=== PATIENT | male | born 1965 | race Caucasian/White ===

== ENCOUNTER 2017-08-29 13:09 | Emergency (ER) | payer MEDICARE, MEDICAID, SELFPAY | END 2017-08-29 14:19 | disposition home or self-care (01) | PROVIDERS: Family Provider Family Medicine; PCP Family Medicine | DX: F41.9 Anxiety disorder, unspecified (principal) | CPT/HCPCS: 82962; 99283 ==

== ENCOUNTER → 2017-10-14 09:57 | Outpatient (CLI) | payer MEDICARE, MEDICAID, SELFPAY ==
[2017-10-14 10:31] LABS: Add Manual Diff / Slide Review NO; Basophils Percent Auto 0.6 % (0-2); Eosinophils Percent Auto 2.7 % (2-4); Hematocrit 45.7 % (41-53); Hemoglobin 15.7 g/dL (13.5-17.5); Lymphocytes Percent Auto 24.2 % (25-40); Mean Corpuscular HGB Conc 34.4 % (30-36); Mean Corpuscular Hemoglobin 28.5 PG (26-34); Mean Corpuscular Volume 82.7 fL (80-100); Monocytes Percent Auto 6.3 % (3-14); Neutrophils Absolute Auto 10300 /uL (3000-5900); Neutrophils Percent Auto 66.2 % (50-75); Platelet Count 292 X10^3/uL (150-400); Red Blood Cell Count 5.53 X10^6/uL (4.5-5.9); Red Cell Distribution Width 13.6 % (11.6-14.8); White Blood Cell Count 15.5 X10^3/uL (4.5-11.0)
[2017-10-14 10:38] LABS: Hemoglobin A1C% w Est Avg Glu 6.5 % (4.0-6.0)
[2017-10-14 10:48] LABS: Alanine Aminotransferase 39 IU/L (21-72); Albumin 4.3 g/dL (3.5-5.0); Albumin Globulin Ratio 1.3 (1.0-2.8); Alkaline Phosphatase 91 U/L (38-126); Aspartate Aminotransferase 21 IU/L (17-59); BUN Creatinine Ratio 18.6 (6-22); Bilirubin Total 0.9 mg/dL (0.2-1.3); Blood Urea Nitrogen 13 mg/dL (9-20); Calcium 9.2 mg/dL (8.4-10.2); Carbon Dioxide 27 mmol/L (22-32); Chloride 99 mmol/L (98-107); Cholesterol 103 mg/dL (140-199); Estimated Glomerular Filt Rate > 60.0 mL/min (>60); Globulin 3.3 g/dL (1.7-4.1); Glucose 132 mg/dL (70-100); HDL Cholesterol 28 mg/dL (40-60); HEMOLYSIS < 15 (0-50); LDL Cholesterol Calculated 56 mg/dL (<100); Potassium 4.3 mmol/L (3.4-5.1); Sodium 140 mmol/L (137-145); Total Protein 7.6 g/dL (6.3-8.2); Triglycerides 93 mg/dL (35-150)
== END ==
PROVIDERS: PCP Family Medicine; Visit Provider Family Medicine
DX: D72.829 Elevated white blood cell count, unspecified (principal); E11.9 Type 2 diabetes mellitus without complications
CPT/HCPCS: 36415; 80053; 80061; 83036; 85025

== ENCOUNTER → 2017-10-25 09:06 | Outpatient (CLI) | payer MEDICARE, MEDICAID, SELFPAY ==
--- NOTE | 2017-10-25 09:08 | DI.RAD.S_ITS ---
PROCEDURE: XR CERVICAL SPINE 2V OR 3V INDICATIONS: 52 year-old male with chronic neck pain. TECHNIQUE: 3 view(s) of the cervical spine were acquired. COMPARISON: None. FINDINGS: Bones: No fractures or dislocations to the C7 level. The lateral masses of C1 appear intact on the odontoid view. There is moderate C5-C6 and C6-C7 disc degeneration. No suspicious bony lesions. Soft tissues: No prevertebral soft tissue swelling. IMPRESSION: Moderate C5-C6 and C6-C7 disc degeneration, with normal bony alignment of the cervical spine. Dictated by: Tommy Hampton M.D. on 10/25/2017 at 10:12 Approved by: Tommy Hampton M.D. on 10/25/2017 at 10:13
== END ==
PROVIDERS: PCP Family Medicine; Visit Provider Family Medicine
DX: M50.322 Other cervical disc degeneration at C5-C6 level (principal); M54.2 Cervicalgia; G89.29 Other chronic pain
CPT/HCPCS: 72040

== ENCOUNTER 2018-01-02 14:50 | Emergency (ER) | payer MEDICARE, MEDICAID, SELFPAY ==
--- NOTE | 2018-01-02 14:52 | ED.ABDPAIN ---
HPI - Abdominal Pain <PRAMOD Morley - Last Filed: 01/02/18 22:18> General Chief Complaint: Back Pain/Injury Stated Complaint: LEFT SIDE ABDOMINAL PAIN Time Seen by Provider: 01/02/18 14:51 Source: patient Mode of arrival: ambulatory Limitations: no limitations History of Present Illness HPI narrative: 52-year-old male here for complaint of pain into his left lateral abdomen for the past couple of hours. He states that there was no trauma to the area. He reports that he was driving when the pain started. He denies any fevers or chills. No nausea or vomiting. Last bowel movement was yesterday and was unremarkable. He denies any urinary symptoms. No flank pain. He denies any other concerns or complaints. He denies any stressors or relievers of the pain. MD complaint: abdominal pain Related Data Home Medications Medication Instructions Recorded Confirmed hydroxyzine HCl 25 mg PO QID PRN 01/02/18 01/02/18 Previous Rx's Medication Instructions Recorded omeprazole 40 mg OR HS #30 cap 06/18/17 fluticasone 110 mcg/actuation HFA 1 puff INHALATION BID #12 gram 09/24/17 aerosol inhaler sertraline 50 mg tablet See Label Instructions PO DAILY 09/24/17 #30 tab albuterol sulfate HFA 90 1 puff INHALATION Q4-6H PRN #1 09/25/17 mcg/actuation aerosol inhaler inhalation atorvastatin 40 mg tablet 40 mg PO QHS #30 tab 11/06/17 lisinopril 20 mg tablet 20 mg PO QDAY #90 tab 12/24/17 cephalexin 500 mg PO BID #14 cap 01/02/18 Allergies Allergy/AdvReac Type Severity Reaction Status Date / Time No Known Drug Allergies Allergy Verified 01/02/18 15:07 Review of Systems <PRAMOD Morley - Last Filed: 01/02/18 22:18> Constitutional Denies chills, Denies fever(s), Denies lethargy and Denies weakness Eyes Denies change in vision, Denies eye discharge, Denies irritation and Denies loss of vision ENT Ears, Nose, Mouth, and Throat: Denies change in voice, Denies neck pain and Denies sore throat Cardiovascular Denies chest pain, Denies irregular heart rhythm, Denies lightheadedness, Denies palpitations, Denies dyspnea, Denies dyspnea on exertion and Denies orthopnea Respiratory Denies cough, Denies dyspnea, Denies dyspnea on exertion and Denies wheezing Gastrointestinal Gastrointestinal: Reports abdominal pain Genitourinary Denies hematuria, Denies flank pain, Denies urinary incontinence and Denies urinary urgency Musculoskeletal Denies neck pain Integumentary/Breasts Denies pruritus, Denies erythema, Denies rash and Denies wounds Neurologic Denies confusion, Denies loss of vision and Denies weakness Psychiatric Denies anxiety, Denies confusion, Denies depression, Denies homicidal ideation and Denies suicidal ideation Endocrine Denies palpitations Hematologic/Lymphatic Denies easy bruising Allergic/Immunologic Denies wheezing Exam <PRAMOD Morley - Last Filed: 01/02/18 22:18> Initial Vital Signs Initial Vital Signs: Vital Signs Temperature 98 F 01/02/18 15:01 Pulse Rate 93 H 01/02/18 15:01 Respiratory Rate 18 01/02/18 15:01 Blood Pressure 132/79 H 01/02/18 15:01 Pulse Oximetry 100 01/02/18 15:01 Const General: cooperative and well developed Nutritional Appearance: well nourished Orientation: alert, awake, oriented x3 and not confused [facility] Mouth: oral mucosae normal and moist mucous membranes Eyes Conjunctivae: conjunctivae normal Sclera: sclerae normal Pupils: PERRL EOM: EOM intact bilaterally Chest Chest: normal inspection of the chest Resp Effort & Inspection: normal respiratory effort, able to speak in complete sentences, no respiratory distress and no use of accessory muscles Auscultation: clear to auscultation bilaterally, no rales, no rhonchi and no wheezes Cardio Rate: regular rate Rhythm: regular rhythm Heart Sounds: no click, no gallops, no murmurs and no rubs Pulses: normal peripheral pulses GI Inspection: non-distended Palpation: soft, no hepatosplenomegaly, No guarding, No pulsatile mass and tender (Tender to the left lateral abdomen) Auscultation: normal bowel sounds General: No CVA tenderness Skin General: no rashes or lesions noted, No jaundice and No petechiae Neuro General: alert, oriented x3, gait normal and no focal motor deficits Speech: speech normal <Juan Pablo Smith DO - Last Filed: 01/03/18 07:35> Initial Vital Signs Initial Vital Signs: Vital Signs Temperature 98 F 01/02/18 15:01 Pulse Rate 93 H 01/02/18 15:01 Respiratory Rate 18 01/02/18 15:01 Blood Pressure 132/79 H 01/02/18 15:01 Pulse Oximetry 100 01/02/18 15:01 Course <PRAMOD Morley - Last Filed: 01/02/18 22:18> Orders Ordered: Discontinued Medications Hydromorphone HCl (Dilaudid) 0.5 mg IV NOW ONE Stop: 01/02/18 15:11 Last Admin: 01/02/18 15:24 Dose: 0.5 mg Sodium Chloride (Normal Saline 0.9%) 1,000 mls @ 1,000 mls/hr IV BOLUS ONE Stop: 01/02/18 16:09 Last Infusion: 01/02/18 16:46 Dose: 0 mls/hr Admin: 01/02/18 15:24 Dose: 1,000 mls/hr Ondansetron HCl (Zofran) 4 mg IV NOW ONE Stop: 01/02/18 15:11 Last Admin: 01/02/18 15:24 Dose: 4 mg Vital Signs - 8 hr 01/02/18 15:01 01/02/18 17:48 Temperature 98 F Pulse Rate 93 H 94 H Respiratory Rate 18 20 Blood Pressure 132/79 H Blood Pressure [Right Arm] 120/68 Pulse Oximetry 100 98 <Juan Pablo Smith DO - Last Filed: 01/03/18 07:35> Orders Ordered: Discontinued Medications Hydromorphone HCl (Dilaudid) 0.5 mg IV NOW ONE Stop: 01/02/18 15:11 Last Admin: 01/02/18 15:24 Dose: 0.5 mg Sodium Chloride (Normal Saline 0.9%) 1,000 mls @ 1,000 mls/hr IV BOLUS ONE Stop: 01/02/18 16:09 Last Infusion: 01/02/18 16:46 Dose: 0 mls/hr Admin: 01/02/18 15:24 Dose: 1,000 mls/hr Ondansetron HCl (Zofran) 4 mg IV NOW ONE Stop: 01/02/18 15:11 Last Admin: 01/02/18 15:24 Dose: 4 mg Vital Signs - 8 hr 01/02/18 15:01 01/02/18 17:48 Temperature 98 F Pulse Rate 93 H 94 H Respiratory Rate 18 20 Blood Pressure 132/79 H Blood Pressure [Right Arm] 120/68 Pulse Oximetry 100 98 MDM - Abdominal Pain <PRAMOD Morley - Last Filed: 01/02/18 22:18> Lab Data Result diagrams: 01/02/18 15:28 01/02/18 15:28 Lab Results 01/02/18 01/02/18 01/02/18 Range/Units 15:28 15:28 16:30 WBC 18.4 H (4.5-11.0) X10^3/uL RBC 5.01 (4.5-5.9) X10^6/uL Hgb 14.3 (13.5-17.5) g/dL Hct 41.7 (41-53) % MCV 83.3 (80-100) fL MCH 28.6 (26-34) PG MCHC 34.3 (30-36) % RDW 13.2 (11.6-14.8) % Plt Count 276 (150-400) X10^3/uL Neut % (Auto) 83.2 H (50-75) % Lymph % (Auto) 10.7 L (25-40) % [place] % (Auto) 5.0 (3-14) % Eos % (Auto) 0.5 L (2-4) % Baso % (Auto) 0.6 (0-2) % Neut # (Auto) 64822 H (6620-0951) /uL Sodium 136 L (137-145) mmol/L Potassium 4.1 (3.4-5.1) mmol/L Chloride 99 (98-107) mmol/L Carbon Dioxide 25 (22-32) mmol/L BUN 13 (9-20) mg/dL Creatinine 0.70 (0.66-1.25) mg/dL Estimated GFR > 60.0 (>60) mL/min BUN/Creatinine Ratio 18.6 (6-22) Glucose 164 H (70-100) mg/dL Calcium 9.5 (8.4-10.2) mg/dL Total Bilirubin 1.2 (0.2-1.3) mg/dL AST 24 (17-59) IU/L ALT 37 (21-72) IU/L Alkaline Phosphatase 83 (38-126) U/L Total Protein 7.5 (6.3-8.2) g/dL Albumin 4.4 (3.5-5.0) g/dL Globulin 3.1 (1.7-4.1) g/dL Albumin/Globulin Ratio 1.4 (1.0-2.8) Lipase 63 (23-300) U/L Urine Color Red Urine Appearance Cloudy Urine pH 7.5 (4.5-8.0) Ur Specific [place] 1.010 (1.000-1.035) Urine Protein 2+ H (Negative) Urine Glucose (UA) Negative (Normal) g/dL Urine Ketones Negative (NEGATIVE) Urine Occult Blood 3+ H (Negative) Urine Nitrate Negative (Negative) Urine Bilirubin Negative (NEGATIVE) Urine Urobilinogen 0.2 (0.2) E.U./dL Ur Leukocyte Esterase Trace H (NEGATIVE) Urine RBC >100/hpf (0-5/HPF) Urine WBC 10-30/hpf H (0-5/HPF) Ur Squamous Epith Cells 1-5 /hpf Urine Bacteria None seen (None) Ur Culture Indicated? Specimen cultured MDM Narrative Medical decision making narrative: CBC shows elevated white count. Chem panel shows elevated glucose otherwise is unremarkable. CT of the abdomen was obtained and shows that there is a 2 cm cyst to the left kidney area, There is a 3 mm nonlocking stone into the left kidney, and also a 1 cm nodule to the left adrenal gland. Urinalysis indicates urinary tract infection. Differential between pyelonephritis and possible passed kidney stone as patient had blood in his urine. He is placed on Keflex. He is instructed to follow up with primary care provider in the next few days for re-evaluation. He is instructed to obtain adrenal glands specific imaging such as CT or MRI. [id number] Tylenol Motrin as needed for any discomfort. For any worsening symptoms return to the emergency room. Urine culture is pending. <Juan Pablo Smith, - Last Filed: 01/03/18 07:35> Lab Data Lab Results 01/02/18 01/02/18 01/02/18 Range/Units 15:28 15:28 16:30 WBC 18.4 H (4.5-11.0) X10^3/uL RBC 5.01 (4.5-5.9) X10^6/uL Hgb 14.3 (13.5-17.5) g/dL Hct 41.7 (41-53) % MCV 83.3 (80-100) fL MCH 28.6 (26-34) PG MCHC 34.3 (30-36) % RDW 13.2 (11.6-14.8) % Plt Count 276 (150-400) X10^3/uL Neut % (Auto) 83.2 H (50-75) % Lymph % (Auto) 10.7 L (25-40) % [place] % (Auto) 5.0 (3-14) % Eos % (Auto) 0.5 L (2-4) % Baso % (Auto) 0.6 (0-2) % Neut # (Auto) 39539 H (2166-1863) /uL Sodium 136 L (137-145) mmol/L Potassium 4.1 (3.4-5.1) mmol/L Chloride 99 (98-107) mmol/L Carbon Dioxide 25 (22-32) mmol/L BUN 13 (9-20) mg/dL Creatinine 0.70 (0.66-1.25) mg/dL Estimated GFR > 60.0 (>60) mL/min BUN/Creatinine Ratio 18.6 (6-22) Glucose 164 H (70-100) mg/dL Calcium 9.5 (8.4-10.2) mg/dL Total Bilirubin 1.2 (0.2-1.3) mg/dL AST 24 (17-59) IU/L ALT 37 (21-72) IU/L Alkaline Phosphatase 83 (38-126) U/L Total Protein 7.5 (6.3-8.2) g/dL Albumin 4.4 (3.5-5.0) g/dL Globulin 3.1 (1.7-4.1) g/dL Albumin/Globulin Ratio 1.4 (1.0-2.8) Lipase 63 (23-300) U/L Urine Color Red Urine Appearance Cloudy Urine pH 7.5 (4.5-8.0) Ur Specific [place] 1.010 (1.000-1.035) Urine Protein 2+ H (Negative) Urine Glucose (UA) Negative (Normal) g/dL Urine Ketones Negative (NEGATIVE) Urine Occult Blood 3+ H (Negative) Urine Nitrate Negative (Negative) Urine Bilirubin Negative (NEGATIVE) Urine Urobilinogen 0.2 (0.2) E.U./dL Ur Leukocyte Esterase Trace H (NEGATIVE) Urine RBC >100/hpf (0-5/HPF) Urine WBC 10-30/hpf H (0-5/HPF) Ur Squamous Epith Cells 1-5 /hpf Urine Bacteria None seen (None) Ur Culture Indicated? Specimen cultured Discharge Plan Departure Patient Disposition: Home Clinical Impression: Acute pyelonephritis Discharge Date/Time: 01/02/18 18:31 Interventions: ED Discharge Assessment Last Done: 01/02/18 18:29 Instructions: DI for Kidney Infection Activity Restrictions/Additional Instructions: CT the abdomen shows a 3 mm non occluding a kidney stone. CT also shows a cyst to the left kidney area and also a 1 cm nodule to the left adrenal gland. Recommend obtaining CT or MRI of the adrenal gland to further evaluate via your primary care provider. Urinalysis indicates urinary tract infection. You are placed on antibiotic use as directed. Plenty of fluids. Use [id number] Tylenol or Motrin as needed for discomfort. Follow up with primary care provider in next few days for re-evaluation. For any worsening symptoms return to the emergency room. Prescriptions: New cephalexin 500 mg capsule 500 mg PO BID Qty: 14 RF: 0 No Action omeprazole 40 MG capsule,delayed release(DR/EC) 40 mg OR HS Qty: 30 RF: 3 atorvastatin 40 mg tablet 40 mg PO QHS Qty: 30 RF: 0 lisinopril 20 mg tablet 20 mg PO QDAY Qty: 90 RF: 1 fluticasone [Flovent HFA] 110 mcg/actuation HFA aerosol inhaler 1 puff INHALATION BID Qty: 12 RF: 2 sertraline 50 mg tablet See Label Instructions PO DAILY Qty: 30 RF: 1 albuterol sulfate [Proventil HFA] 90 mcg/actuation HFA aerosol inhaler 1 puff INHALATION Q4-6H PRN (Reason: shortness of breath or wheezing) Qty: 1 RF: 3 hydroxyzine HCl 25 mg Tablet 25 mg PO QID PRN (Reason: Anxiety) RF: 0 Referrals: Carolyn Calvin DO [Primary Care Provider] - <Juan Pablo Smith DO - Last Filed: 01/03/18 07:35> Cosign ED Attending Jemma Attestation: I was available for consultation during this patient's emergency department encounter
[2018-01-02 15:01] VITALS: BP 132/79; PULSE 93; RESP 18; TEMP 36.6; O2SAT 100
--- NOTE | 2018-01-02 15:11 | DI.CT.S_ITS ---
PROCEDURE: CT ABDOMEN PELVIS W CON INDICATIONS: Left upper/lower quadrant pain TECHNIQUE: After the administration of intravenous contrast, 5 mm thick sections acquired from the diaphragm to the symphysis. 5 mm coronal and sagittal reformats were acquired. For radiation dose reduction, the following was used: automated exposure control, adjustment of mA and/or kV according to patient size. COMPARISON: None. FINDINGS: Image quality: Excellent. ABDOMEN: Lung bases: Lung bases are clear. Heart size is normal. Solid organs: There is diffuse hepatic fatty infiltration. Liver is normal in size and enhancement. Gallbladder is normal. Biliary system is non dilated. Pancreas enhances normally. Spleen is normal in size and enhancement. There is a 1.1 cm left adrenal nodule. There is a 3 mm stone in the left renal pelvis. There is a 2.2 x 3.3 cm hypodense nodule in the left kidney. Mild left nephric stranding. Kidneys demonstrate normal size and enhancement, without hydronephrosis. Peritoneum and bowel: There are scattered colonic diverticula. No evidence for acute diverticulitis. Bowel loops demonstrate normal wall thickness and caliber. No free fluid or air. Nodes and vessels: No retroperitoneal or mesenteric adenopathy by size criteria. Aorta and inferior vena cava are normal in size. Miscellaneous: A tiny umbilical hernia is noted. PELVIS: Genitourinary: Bladder wall thickness is normal. Miscellaneous: No inguinal hernias or adenopathy. Bones: No suspicious bony lesions. No vertebral body compression fractures. IMPRESSION: 1. Diverticulosis without acute diverticulitis. 2. A 3 mm nonobstructive left renal stone. There is mild perinephric stranding in left kidney. 3. A 2.2 x 3.3 cm low density nodule in the left kidney, probably a cyst. 4. Hepatic steatosis. 5. A 1.1 cm left adrenal nodule. A non-emergent MRI or CT using adrenal protocol is suggested for followup. Dictated by: Mau Goldstein M.D. on 01/02/2018 at 16:31 Approved by: Mau Goldstein M.D. on 01/02/2018 at 16:40
[2018-01-02] MEDS: SODIUM CHLORIDE 0.9% 1,000 ML 1000 ML IV (15:24)
[2018-01-02] MEDS: HYDROMORPHONE 1 MG INJ 0.5 MG IV (15:24)
[2018-01-02] MEDS: ONDANSETRON 4 MG/2 ML INJ IV (15:24)
[2018-01-02 15:38] LABS: Add Manual Diff / Slide Review NO; Basophils Percent Auto 0.6 % (0-2); Eosinophils Percent Auto 0.5 % (2-4); Hematocrit 41.7 % (41-53); Hemoglobin 14.3 g/dL (13.5-17.5); Lymphocytes Percent Auto 10.7 % (25-40); Mean Corpuscular HGB Conc 34.3 % (30-36); Mean Corpuscular Hemoglobin 28.6 PG (26-34); Mean Corpuscular Volume 83.3 fL (80-100); Neutrophils Absolute Auto 15300 /uL (3000-5900); Neutrophils Percent Auto 83.2 % (50-75); Platelet Count 276 X10^3/uL (150-400); Red Blood Cell Count 5.01 X10^6/uL (4.5-5.9); Red Cell Distribution Width 13.2 % (11.6-14.8); White Blood Cell Count 18.4 X10^3/uL (4.5-11.0)
[2018-01-02 15:48] LABS: Alanine Aminotransferase 37 IU/L (21-72); Albumin 4.4 g/dL (3.5-5.0); Albumin Globulin Ratio 1.4 (1.0-2.8); Alkaline Phosphatase 83 U/L (38-126); Aspartate Aminotransferase 24 IU/L (17-59); BUN Creatinine Ratio 18.6 (6-22); Bilirubin Total 1.2 mg/dL (0.2-1.3); Blood Urea Nitrogen 13 mg/dL (9-20); Calcium 9.5 mg/dL (8.4-10.2); Carbon Dioxide 25 mmol/L (22-32); Chloride 99 mmol/L (98-107); Estimated Glomerular Filt Rate > 60.0 mL/min (>60); Globulin 3.1 g/dL (1.7-4.1); Glucose 164 mg/dL (70-100); HEMOLYSIS < 15 (0-50); Lipase 63 U/L (23-300); Potassium 4.1 mmol/L (3.4-5.1); Sodium 136 mmol/L (137-145); Total Protein 7.5 g/dL (6.3-8.2)
[2018-01-02 17:19] LABS: Bacteria Urine None Seen
[2018-01-02 17:23] LABS: Appearance Urine UA CLOUDY; Bilirubin Urine UA NEGATIVE (NEGATIVE); Color Urine UA RED; Glucose Urine UA NEGATIVE (Normal); Ketones Urine UA NEGATIVE (NEGATIVE); Leukocyte Esterase Urine UA TRACE (NEGATIVE); Nitrite Urine UA Negative (Negative); Occult Blood Urine UA 3+ (Negative); Protein Urine UA 2+ (Negative); Urobilinogen Urine UA 0.2 E.U./dL (0.2); pH Urine UA 7.5 (4.5-8.0)
[2018-01-02 17:26] LABS: Culture Indicated Urine Specimen Cultured; RBC Urine >100/HPF (0-5/HPF); Squamous Epithelial Cell Urine 1-5 /HPF; WBC Urine 10-30/HPF (0-5/HPF)
[2018-01-02 17:48] VITALS: BP 120/68; PULSE 94; RESP 20; O2SAT 98
== END 2018-01-02 18:31 | disposition home or self-care (01) ==
PROVIDERS: Emergency Provider Nurse Practitioner Family; Family Provider Family Medicine; PCP Family Medicine
DX: N10 Acute pyelonephritis (principal)
CPT/HCPCS: 36591; 74177; 80053; 81001; 83690; 85025; 87086; 96361; 96374; 96375; 99283; 99285; J1170; J2405; Q9967

== ENCOUNTER → 2019-03-20 10:52 | Outpatient (CLI) | payer MEDICARE, MEDICAID, SELFPAY ==
[2019-03-20 12:39] LABS: Add Manual Diff / Slide Review NO; Basophils Absolute Auto 100 /uL (0-100); Basophils Percent Auto 0.4 % (0-2); Eosinophils Absolute Auto 200 /uL (0-450); Eosinophils Percent Auto 1.6 % (2-4); Hematocrit 44.3 % (41-53); Hemoglobin 15.1 g/dL (13.5-17.5); Lymphocytes Absolute Auto 3500 /uL (1100-4500); Lymphocytes Percent Auto 27.2 % (25-40); Mean Corpuscular Hemoglobin 28.6 PG (26-34); Monocytes Absolute Auto 800 /uL (0-900); Monocytes Percent Auto 5.8 % (3-14); Neutrophils Absolute Auto 8400 /uL (1500-7000); Platelet Count 310 X10^3/uL (150-400); Red Blood Cell Count 5.27 X10^6/uL (4.5-5.9); Red Cell Distribution Width 13.6 % (11.6-14.8); White Blood Cell Count 12.9 X10^3/uL (4.5-11.0)
[2019-03-20 12:58] LABS: Hemoglobin A1C% w Est Avg Glu 8.4 % (4.0-6.0)
[2019-03-20 13:13] LABS: Alanine Aminotransferase 27 IU/L (<50); Albumin 4.7 g/dL (3.5-5.0); Albumin Globulin Ratio 1.5 (1.0-2.8); Alkaline Phosphatase 89 U/L (38-126); Aspartate Aminotransferase 27 IU/L (17-59); BUN Creatinine Ratio 21.7 (6-22); Blood Urea Nitrogen 13 mg/dL (9-20); Calcium 9.5 mg/dL (8.4-10.2); Carbon Dioxide 25 mmol/L (22-32); Chloride 102 mmol/L (98-107); Cholesterol 158 mg/dL (140-199); Estimated Glomerular Filt Rate > 60.0 mL/min (>60); Globulin 3.1 g/dL (1.7-4.1); Glucose 155 mg/dL (70-100); HDL Cholesterol 24 mg/dL (40-60); HEMOLYSIS < 15 (0-50); LDL Cholesterol Calculated 99 mg/dL (<100); Sodium 138 mmol/L (137-145); Total Protein 7.8 g/dL (6.3-8.2); Triglycerides 173 mg/dL (35-150)
== END ==
PROVIDERS: Family Provider Family Medicine; PCP Family Medicine; Visit Provider Family Medicine
DX: E11.69 Type 2 diabetes mellitus with other specified complication (principal); E66.01 Morbid (severe) obesity due to excess calories; E78.5 Hyperlipidemia, unspecified; I10 Essential (primary) hypertension
CPT/HCPCS: 36415; 80053; 80061; 83036; 85025

== ENCOUNTER 2020-02-02 22:54 | Emergency (ER) | payer MEDICARE, MEDICAID, SELFPAY ==
--- NOTE | 2020-02-02 22:55 | ED_ITS ---
HPI - Abdominal Pain General Chief Complaint: Abdominal Pain Stated Complaint: lt sided kidney pain Time Seen by Provider: 02/02/20 22:55 Source: patient Mode of arrival: Ambulatory Limitations: no limitations History of Present Illness HPI narrative: 54-year-old male nonsmoker with history of kidney infections and colitis presents with a chief complaint of a relatively sudden onset left flank pain that started earlier today. He states that it is radiating around his left side a bit and he is unable to find a position of comfort. He denies any provocation or palliation. He denies nausea or vomiting. He denies any change in his bowel habits such as constipation or diarrhea. He denies dysuria, frequency or urgency. He is not dizzy nor weak or lightheaded and denies any fever. MD complaint: flank pain Onset (ago): hour(s) Pain Consistency: intermittent Location: L flank Severity: moderate Quality: cramping and aching Radiation: L flank Relieving factors: nothing Exacerbating factors: nothing Associated symptoms: nausea Related Data Home Medications Medication Instructions Recorded Confirmed CPAP #1 ea 11/12/18 06/01/19 Previous Rx's Medication Instructions Recorded fluticasone propionate 110 1 puff INHALATION BID #12 gram 09/24/17 mcg/actuation HFA aerosol inhaler albuterol sulfate 90 mcg/actuation 1 puff INHALATION Q4-6H PRN #1 09/25/17 aerosol inhaler inhalation atorvastatin 40 mg tablet 40 mg PO QHS #90 tab 01/10/18 hydroxyzine HCl 25 mg tablet 25 mg PO QID PRN #30 tab 03/26/18 omeprazole 40 mg capsule,delayed 40 mg PO HS #90 cap 08/06/18 release metformin 1,000 mg tablet 1,000 mg PO BID #60 tab 12/23/18 venlafaxine 150 mg 150 mg PO DAILY #30 cap 05/12/19 capsule,extended release 24 hr albuterol sulfate 90 mcg/actuation 1 inh INHALATION Q4-6H PRN #18 gram 06/01/19 aerosol inhaler benzonatate 100 mg capsule 100 mg PO BEDTIME #20 cap 06/01/19 lisinopril 20 mg tablet 20 mg PO QDAY #90 tab 07/28/19 ciprofloxacin HCl 500 mg PO BID #20 tab 02/03/20 hydrocodone-acetaminophen 1 tab PO Q4-6H PRN #10 tab 02/03/20 ketorolac 10 mg PO Q6H PRN #14 tab 02/03/20 metronidazole [Flagyl] 500 mg PO TID #30 tab 02/03/20 ondansetron 4 mg PO TID-QID PRN #10 tab 02/03/20 tamsulosin [Flomax] 0.4 mg PO DAILY #10 cap 02/03/20 Allergies Allergy/AdvReac Type Severity Reaction Status Date / Time No Known Drug Allergies Allergy Verified 02/02/20 23:02 Review of Systems Constitutional Constitutional: Denies chills, Denies fatigue, Denies fever(s), Denies frequent falls, Denies lethargy and Denies weakness Eyes Eyes: Denies change in vision, Denies eye discharge, Denies irritation and Denies loss of vision ENT Ears, Nose, Mouth, and Throat: Denies change in voice, Denies dizziness, Denies neck pain, Denies sore throat and Denies throat swelling Cardiovascular Cardiovascular: Denies chest pain, Denies irregular heart rhythm, Denies lightheadedness, Denies palpitations, Denies dyspnea, Denies dyspnea on exertion and Denies orthopnea Respiratory Respiratory: Denies cough, Denies dyspnea, Denies dyspnea on exertion and Denies wheezing Gastrointestinal Gastrointestinal: Reports abdominal pain, Denies change in bowel habits, Denies diarrhea, Reports nausea and Denies vomiting Musculoskeletal Musculoskeletal: Denies neck pain and Denies numbness Integumentary/Breasts Skin/Breast: Denies pruritus, Denies erythema, Denies rash and Denies wounds Neurologic Neurologic: Denies behavioral changes, Denies confusion, Denies dizziness, Denies frequent falls, Denies loss of vision, Denies numbness and Denies weakness Psychiatric Psychiatric: Denies anxiety, Denies behavioral changes, Denies confusion, Denies depression, Denies homicidal ideation and Denies suicidal ideation Endocrine Endocrine: Denies fatigue, Denies flushing and Denies palpitations Hematologic/Lymphatic Hematologic/Lymphatic: Denies easy bruising Allergic/Immunologic Allergic/Immunologic: Denies urticaria, Denies throat swelling and Denies wheezing Patient History Medical History Anxiety (Chronic) Bronchitis (Acute) Chronic back pain (Chronic) Chronic cough (Chronic) Diabetes mellitus (Chronic) Disorder of lumbar spine (Chronic) History of posttraumatic stress disorder (PTSD) (Chronic) Hypertension (Chronic) Rib fractures (Chronic) Shoulder pain (Chronic) Sleep apnea (Chronic) Surgical History H/O shoulder surgery (Resolved) Family History Brother Aneurysm Stroke Father Heart disease Sister Heart disease Diabetes mellitus Mother Diabetes mellitus Social History Smoking Status: Current every day smoker alcohol intake: never substance use type: marijuana Smoking Status: Current every day smoker alcohol intake frequency: 0-2 drinks per day Substance Use Type: does not use Exam Narrative Exam Narrative: GENERAL: [54] year old patient appears stated age. Well- nourished, well-developed patient, in mild distress. HEAD: Atraumatic. Normocephalic. EYES: Pupils equal round and reactive. Extraocular motions intact. No scleral icterus. No injection or drainage. ENT: Nose without bleeding, purulent drainage. Throat without erythema, tonsillar hypertrophy or exudate. Airway patent. NECK: Trachea midline. Non tender CARDIOVASCULAR: Regular rate and rhythm without murmurs, gallops, or rubs. RESPIRATORY: Clear to auscultation. Breath sounds equal bilaterally. No wheezes, rales, or rhonchi. GASTROINTESTINAL: Abdomen soft, non-tender, nondistended. EXTREMITIES: No edema or joint tenderness. BACK: Nontender without deformity or crepitance. No flank tenderness. NEURO: AOx3. SKIN: No rash or erythema of visible areas Initial Vital Signs Initial Vital Signs: Vital Signs Temperature 97.9 F 02/02/20 23:03 Pulse Rate 85 02/02/20 23:03 Respiratory Rate 22 02/02/20 23:03 Blood Pressure 146/84 H 02/02/20 23:03 Pulse Oximetry 98 02/02/20 23:03 Course Orders Ordered: ED Orders 02/02/20 23:05 Basic Metabolic Panel Stat Complete Blood Count AUTO DIFF Stat 02/02/20 23:38 CT kidney ureter bladder (KUB) Stat Discontinued Medications Hydrocodone Bitart/Acetaminophen (Vicodin 5/325 Prepack) 1 bottle MISC SEEINSTR ONE Stop: 02/03/20 00:53 Last Admin: 02/03/20 01:02 Dose: 1 bottle Documented by: JAKE Sodium Chloride (Normal Saline 0.9%) 1,000 mls @ 1,000 mls/hr IV BOLUS ONE Stop: 02/02/20 23:58 Last Infusion: 02/03/20 00:37 Dose: 0 mls/hr Documented by: Admin: 02/02/20 23:05 Dose: 1,000 mls/hr Documented by: VALERI Ketorolac Tromethamine (Toradol) 15 mg IV NOW ONE Stop: 02/02/20 23:00 Last Admin: 02/02/20 23:05 Dose: 15 mg Documented by: VALERI Ondansetron HCl (Zofran) 4 mg IV Q4HR PRN PRN Reason: Nausea And Vomiting Last Admin: 02/02/20 23:06 Dose: 4 mg Documented by: VALERI Ondansetron HCl (Zofran) 4 mg IV NOW ONE Stop: 02/03/20 00:53 Last Admin: 02/03/20 00:55 Dose: 4 mg Documented by: JAKE Ondansetron HCl (Zofran Odt Prepack) 1 bottle MISC SEEINSTR ONE Stop: 02/03/20 00:53 Last Admin: 02/03/20 01:02 Dose: 1 bottle Documented by: JAKE Vital Signs Vital signs: Vital Signs - 8 hr 02/02/20 23:03 02/02/20 23:16 02/02/20 23:30 Temperature 97.9 F Pulse Rate 85 76 78 Respiratory Rate 22 Blood Pressure 146/84 H 137/77 Pulse Oximetry 98 95 97 02/03/20 00:00 02/03/20 00:01 02/03/20 00:30 Temperature Pulse Rate 74 76 80 Respiratory Rate Blood Pressure 124/60 126/71 Pulse Oximetry 92 92 94 MDM - Abdominal Pain Lab Data Result diagrams: 02/02/20 23:05 02/02/20 23:05 Labs: Lab Results 02/02/20 02/02/20 Range/Units 23:05 23:05 WBC 19.3 H (4.5-11.0) X10^3/uL RBC 5.30 (4.5-5.9) X10^6/uL Hgb 15.1 (13.5-17.5) g/dL Hct 44.2 (41-53) % MCV 83.5 (80-100) fL MCH 28.6 (26-34) PG MCHC 34.2 (30-36) % RDW 13.8 (11.6-14.8) % Plt Count 334 (150-400) X10^3/uL Neut % (Auto) 70.7 (50-75) % Lymph % (Auto) 19.7 L (25-40) % Coal % (Auto) 8.1 (3-14) % Eos % (Auto) 1.0 L (2-4) % Baso % (Auto) 0.5 (0-2) % Neut # (Auto) 92353 H (8028-7388) /uL Lymph # (Auto) 3800 (6947-6382) /uL Coal # (Auto) 1600 H (0-900) /uL Eos # (Auto) 200 (0-450) /uL Baso # (Auto) 100 (0-100) /uL Sodium 136 L (137-145) mmol/L Potassium 3.9 (3.4-5.1) mmol/L Chloride 101 (98-107) mmol/L Carbon Dioxide 24 (22-32) mmol/L BUN 21 H (9-20) mg/dL Creatinine 1.04 (0.66-1.25) mg/dL Estimated GFR > 60.0 (>60) mL/min BUN/Creatinine Ratio 20.2 (6-22) Glucose 163 H (70-100) mg/dL Calcium 10.0 (8.4-10.2) mg/dL Imaging Data CT scan - abdomen/pelvis: Radiologist's Impression: Distal left ureteral calculus at the UVJ with mild hydro nephrosis, findings suspicious for proctocolitis MDM Narrative Medical decision making narrative: Patient's pain was sudden in onset and colicky in nature without provocation or palliation. This is much more consistent with kidney stone than colitis, however he does have an elevated white blood cell count therefore he will be treated for both conditions. He has been given return precautions and has had his questions answered to his apparent satisfaction Discharge Plan Departure Patient Disposition: Home Clinical Impression: Calculus of kidney, Colitis Discharge Date/Time: 02/03/20 01:21 Instructions: DI for Kidney Stones, DI for Colitis Activity Restrictions/Additional Instructions: *You have been diagnosed with [left-sided kidney stone and colitis *What to do: *Take medications as directed: Prescription sent to [facility] at your request *Follow up with your primary care provider in 2-3 days, call for an appointment. Let them know you were seen in the Emergency Department and that we ask that you be seen in follow up *Return to ER if you should have any new, worsening or concerning symptoms 1. Drink plenty of fluids with frequent small sips. 2. For the next 24 hours a clear liquid diet is advised. After that please employ a B.R.A.T. diet which would include bananas, rice, apples, toast and other mild food items 3. Please take medications as directed. 4. Please follow-up with your doctor in the next 1-2 days. Call the office for an appointment. 5. Please return to the emergency Department for any worsening or persistent symptoms, such as increasing pain or fever. Prescriptions: New hydrocodone-acetaminophen 5-325 mg tablet 1 tab PO Q4-6H PRN (Reason: pain) Qty: 10 RF: 0 ketorolac 10 mg tablet 10 mg PO Q6H PRN (Reason: pain) Qty: 14 RF: 0 tamsulosin [Flomax] 0.4 mg capsule 0.4 mg PO DAILY Qty: 10 RF: 0 ondansetron 4 mg tablet,disintegrating 4 mg PO TID-QID PRN (Reason: nausea and vomiting) Qty: 10 RF: 0 ciprofloxacin HCl 500 mg tablet 500 mg PO BID Qty: 20 RF: 0 metronidazole [Flagyl] 500 mg tablet 500 mg PO TID Qty: 30 RF: 0 No Action albuterol sulfate 90 mcg/actuation HFA aerosol inhaler 1 inh INHALATION Q4-6H PRN (Reason: shortness of breath) Qty: 18 RF: 0 benzonatate 100 mg capsule 100 mg PO BEDTIME Qty: 20 RF: 0 atorvastatin 40 mg tablet 40 mg PO QHS Qty: 90 RF: 3 omeprazole 40 mg capsule,delayed release(DR/EC) 40 mg PO HS Qty: 90 RF: 2 (DME) CPAP Qty: 1 RF: 0 metformin [Glucophage] 1,000 mg tablet 1,000 mg PO BID Qty: 60 RF: 3 venlafaxine 150 mg capsule,extended release 24hr 150 mg PO DAILY Qty: 30 RF: 0 lisinopril 20 mg tablet 20 mg PO QDAY Qty: 90 RF: 0 fluticasone propionate [Flovent HFA] 110 mcg/actuation HFA aerosol inhaler 1 puff INHALATION BID Qty: 12 RF: 2 albuterol sulfate [Proventil HFA] 90 mcg/actuation HFA aerosol inhaler 1 puff INHALATION Q4-6H PRN (Reason: shortness of breath or wheezing) Qty: 1 RF: 3 hydroxyzine HCl 25 mg tablet 25 mg PO QID PRN (Reason: Anxiety) Qty: 30 RF: 3 Referrals: Carolyn Calvin DO [Primary Care Provider] -
[2020-02-02 23:03] VITALS: BP 146/84; PULSE 85; RESP 22; TEMP 36.6; O2SAT 98; BMI 42.8
[2020-02-02] MEDS: KETOROLAC 60 MG/2 ML VIAL 15 MG IV (23:05)
[2020-02-02] MEDS: SODIUM CHLORIDE 0.9% 1,000 ML 1000 ML IV (23:05)
[2020-02-02] MEDS: ONDANSETRON 4 MG/2 ML INJ IV (23:06)
[2020-02-02 23:16] VITALS: PULSE 76; O2SAT 95
[2020-02-02 23:22] LABS: Add Manual Diff / Slide Review NO; Basophils Absolute Auto 100 /uL (0-100); Basophils Percent Auto 0.5 % (0-2); Eosinophils Absolute Auto 200 /uL (0-450); Hematocrit 44.2 % (41-53); Hemoglobin 15.1 g/dL (13.5-17.5); Lymphocytes Absolute Auto 3800 /uL (1100-4500); Lymphocytes Percent Auto 19.7 % (25-40); Mean Corpuscular HGB Conc 34.2 % (30-36); Mean Corpuscular Hemoglobin 28.6 PG (26-34); Mean Corpuscular Volume 83.5 fL (80-100); Monocytes Absolute Auto 1600 /uL (0-900); Monocytes Percent Auto 8.1 % (3-14); Neutrophils Absolute Auto 13700 /uL (1500-7000); Neutrophils Percent Auto 70.7 % (50-75); Platelet Count 334 X10^3/uL (150-400); Red Cell Distribution Width 13.8 % (11.6-14.8); White Blood Cell Count 19.3 X10^3/uL (4.5-11.0)
[2020-02-02 23:30] VITALS: BP 137/77; PULSE 78; O2SAT 97
[2020-02-02 23:34] LABS: BUN Creatinine Ratio 20.2 (6-22); Blood Urea Nitrogen 21 mg/dL (9-20); Carbon Dioxide 24 mmol/L (22-32); Chloride 101 mmol/L (98-107); Estimated Glomerular Filt Rate > 60.0 mL/min (>60); Glucose 163 mg/dL (70-100); HEMOLYSIS < 15 (0-50); Potassium 3.9 mmol/L (3.4-5.1); Sodium 136 mmol/L (137-145)
--- NOTE | 2020-02-02 23:38 | DI.CT.S_ITS ---
PROCEDURE: CT KIDNEY URETER BLADDER (KUB) INDICATIONS: severe left flank pain TECHNIQUE: Noncontrast 5 mm thick sections acquired from the diaphragms to the symphysis. 5 mm thick coronal and sagittal reformats were then performed. For radiation dose reduction, the following was used: automated exposure control, adjustment of mA and/or kV according to patient size. COMPARISON: None. FINDINGS: Image quality: Excellent. Lung bases: Lung bases are clear. Heart size is normal. Urinary system: Both kidneys are normal in size. 5 millimeter stone noted in the left UVJ causing mild left-sided hydroureteronephrosis. No right-sided renal stones. Mild left perinephric stranding which could be related to hydronephrosis, however superimposed pyelonephritis can not be excluded by imaging alone. Bladder wall thickness is normal; no calcified bladder stones. Other solid organs: Liver is normal in size. Diffuse fatty infiltration of the liver. Gallbladder is within normal limits. Pancreas is normal in contours. Spleen is normal in size. No adrenal nodules. Peritoneum and bowel: Unenhanced bowel loops demonstrate normal wall thickness and caliber. Scattered diverticuli noted in the colon without evidence of diverticulitis. No free fluid or air. The appendix is normal. Nodes and vessels: No retroperitoneal or mesenteric adenopathy by size criteria. Aorta and inferior vena cava are normal in caliber. Abdominal wall: No ventral hernias. Pelvis: No free pelvic fluid. No inguinal hernias or adenopathy. Bones: No suspicious bony lesions. No vertebral body compression fractures. Spine degenerative disc disease and facet arthropathy. IMPRESSION: 1. 5 millimeter left UVJ stone causing mild left-sided hydroureteronephrosis. 2. Mild left perinephric stranding which could be secondary to hydronephrosis versus pyelonephritis. Recommend correlation with clinical and laboratory data. 3. Hepatic steatosis. Dictated by: Shira Duenas MD, PhD on 02/03/2020 at 7:42 Approved by: Shira Duenas MD, PhD on 02/03/2020 at 7:46
[2020-02-03] VITALS: PULSE 74; O2SAT 92
[2020-02-03 00:01] VITALS: BP 124/60; PULSE 76; O2SAT 92
[2020-02-03 00:30] VITALS: BP 126/71; PULSE 80; O2SAT 94
[2020-02-03] MEDS: ONDANSETRON 4 MG/2 ML INJ IV (00:55)
[2020-02-03] MEDS: ONDANSETRON 4 MG ODT PREPACK 1 BOTTLE MISC (01:02)
[2020-02-03] MEDS: HYDROCODONE/ACET 5/325 PREPACK 1 BOTTLE MISC (01:02)
--- NOTE | 2020-02-03 01:04 | PC.NURSE ---
Pt reports increased pain with sitting up and moving around. Nausea/emesis. MD notified, zofran given.
== END 2020-02-03 01:21 | disposition home or self-care (01) ==
PROVIDERS: Emergency Provider Emergency Medicine; Family Provider Family Medicine; PCP Family Medicine
DX: N20.0 Calculus of kidney (principal); K52.9 Noninfective gastroenteritis and colitis, unspecified
CPT/HCPCS: 36415; 74176; 80048; 85025; 96361; 96374; 96375; 96376; 99284; J1885; J2405

== ENCOUNTER → 2020-02-09 09:53 | Outpatient (CLI) | payer MEDICARE, MEDICAID, SELFPAY ==
[2020-02-09 11:27] LABS: Add Manual Diff / Slide Review NO; Basophils Absolute Auto 100 /uL (0-100); Basophils Percent Auto 0.5 % (0-2); Eosinophils Absolute Auto 300 /uL (0-450); Eosinophils Percent Auto 2.3 % (2-4); Hematocrit 43.7 % (41-53); Hemoglobin 14.8 g/dL (13.5-17.5); Lymphocytes Absolute Auto 3200 /uL (1100-4500); Lymphocytes Percent Auto 23.2 % (25-40); Mean Corpuscular HGB Conc 33.8 % (30-36); Mean Corpuscular Hemoglobin 28.7 PG (26-34); Mean Corpuscular Volume 84.8 fL (80-100); Monocytes Absolute Auto 1000 /uL (0-900); Monocytes Percent Auto 7.3 % (3-14); Neutrophils Absolute Auto 9300 /uL (1500-7000); Neutrophils Percent Auto 66.7 % (50-75); Platelet Count 332 X10^3/uL (150-400); Red Blood Cell Count 5.15 X10^6/uL (4.5-5.9); Red Cell Distribution Width 13.9 % (11.6-14.8)
[2020-02-09 12:23] LABS: Thyroid Stimulating Hormone 2.46 uIU/mL (0.47-4.68)
[2020-02-09 12:26] LABS: Alanine Aminotransferase 34 IU/L (<50); Albumin 4.3 g/dL (3.5-5.0); Albumin Globulin Ratio 1.4 (1.0-2.8); Alkaline Phosphatase 82 U/L (38-126); Aspartate Aminotransferase 28 IU/L (17-59); BUN Creatinine Ratio 22.1 (6-22); Bilirubin Total 0.4 mg/dL (0.2-1.3); Blood Urea Nitrogen 19 mg/dL (9-20); Calcium 9.6 mg/dL (8.4-10.2); Carbon Dioxide 26 mmol/L (22-32); Chloride 103 mmol/L (98-107); Cholesterol 124 mg/dL (140-199); Estimated Glomerular Filt Rate > 60.0 mL/min (>60); Glucose 136 mg/dL (70-100); HDL Cholesterol 28 mg/dL (40-60); HEMOLYSIS 16 (0-50); LDL Cholesterol Calculated 62 mg/dL (<100); Potassium 4.6 mmol/L (3.4-5.1); Sodium 139 mmol/L (137-145); Total Protein 7.3 g/dL (6.3-8.2); Triglycerides 171 mg/dL (35-150)
[2020-02-09 12:27] LABS: Hemoglobin A1C% w Est Avg Glu 6.8 % (4.0-6.0)
[2020-02-09 14:43] LABS: Creatinine Urine Random 92.4 mg/dL
[2020-02-09 14:52] LABS: Microalbumin Urine Random < 0.6 mg/dL (0-1.6)
== END ==
PROVIDERS: Family Provider Family Medicine; PCP Family Medicine; Referring Provider Family Medicine; Visit Provider Family Medicine
DX: E11.69 Type 2 diabetes mellitus with other specified complication (principal); E66.01 Morbid (severe) obesity due to excess calories; E78.5 Hyperlipidemia, unspecified; I10 Essential (primary) hypertension
CPT/HCPCS: 36415; 80053; 80061; 82043; 82570; 83036; 84443; 85025

== ENCOUNTER → 2022-04-08 14:38 | Outpatient (CLI) | payer MEDICARE, MEDICAID, SELFPAY ==
[2022-04-08 15:34] LABS: Influenza A - CEPHEID Flu A NEGATIVE (NEGATIVE); Influenza B - CEPHEID Flu B NEGATIVE (NEGATIVE); Respiratory Syncytial Virus Negative (Negative)
[2022-04-08 15:36] LABS: COVID-19 CEPHEID 4-PLEX PCR Negative (Negative)
== END ==
PROVIDERS: Family Provider Family Medicine; PCP Family Medicine; Visit Provider Physician Assistant
DX: R05.9 Cough, unspecified (principal); J02.9 Acute pharyngitis, unspecified
CPT/HCPCS: 0241U

== ENCOUNTER → 2022-04-08 15:38 | Outpatient (CLI) | payer MEDICARE, MEDICAID, SELFPAY ==
--- NOTE | 2022-04-08 15:42 | DI.RAD.S_ITS ---
PROCEDURE: XR CHEST 2V INDICATIONS: History of emphysema with shortness of breath and cough TECHNIQUE: 2 views of the chest were acquired. COMPARISON: [facility], , CHEST 1 VIEW, 10/21/2014, 16:24. FINDINGS: Surgical changes and devices: None. Lungs and pleura: Mild generalized interstitial type infiltrates are seen. No focal consolidation can be seen. No pleural effusions or pneumothorax. Mediastinum: Mediastinal contours are normal. Heart size is normal. Bones and chest wall: No suspicious bony abnormalities. Age-appropriate bony degenerative changes are seen. Soft tissues appear unremarkable. IMPRESSION: These imaging findings are compatible with bronchitis or viral infection. No consolidated infiltrates are seen. Dictated by: Jonathan Franklin M.D. on 04/08/2022 at 15:16 Approved by: Jonathan Franklin M.D. on 04/08/2022 at 15:17
== END ==
PROVIDERS: Family Provider Family Medicine; PCP Family Medicine; Referring Provider Physician Assistant; Visit Provider Physician Assistant
DX: J06.9 Acute upper respiratory infection, unspecified (principal); J02.9 Acute pharyngitis, unspecified; R05.9 Cough, unspecified
CPT/HCPCS: 0241U; 71046

== ENCOUNTER 2022-05-26 12:38 | Emergency (ER) | payer MEDICARE, MEDICAID, SELFPAY ==
[2022-05-26 12:48] VITALS: BP 138/88; PULSE 80; RESP 22; TEMP 36.6; O2SAT 99; BMI 38.0
--- NOTE | 2022-05-26 14:57 | ED_ITS ---
HPI - Psych <Houston Ackerman PA-C - Last Filed: 05/26/22 15:14> General Chief Complaint: Psychiatric Symptoms Stated Complaint: SOB, sent from [facility] Time Seen by Provider: 05/26/22 12:42 Source: patient Mode of arrival: Ambulatory History of Present Illness HPI Narrative: This is a 56-year-old male with a history of anxiety depression presents to the emergency department due to increased anxiety over the last 3 days. Patient states that a relative of his called the side show entertainer on him accusing him of multiple crimes although the patient denies actually committing these crimes. Patient states that police surrounded his house couple of days ago and since then he is had very increased anxiety. Patient states that slight sound or disturbance causes him to have a mild panic attack. Denies any thoughts of hurting himself or others. Patient does not report any auditory or visual hallucinations. Patient denies a history of bipolar, schizophrenia, or any other psychiatric illnesses other than the anxiety and depression. Patient states that he recently requested to decrease his venlafaxine from 100 mg to 75 mg through his primary care provider but suspect that it is not helping with his anxiety. He has been taking as prescribed. Related Data Home Medications Medication Instructions Recorded Confirmed CPAP #1 ea 11/12/18 04/24/22 Previous Rx's Medication Instructions Recorded disabled parking permit #1 ea 10/18/21 albuterol sulfate 90 mcg/actuation 1 inh inhalation Q4-6H PRN 04/08/22 aerosol inhaler shortness of breath #18 grams fluticasone propionate 110 1 puff inhalation BID #12 grams 04/08/22 mcg/actuation HFA aerosol inhaler (Flovent HFA) atorvastatin 40 mg tablet 40 mg PO QHS #90 tabs 04/24/22 lisinopril 20 mg tablet See Rx Instructions .Route 04/24/22 .COMPLEX #90 tabs meloxicam 15 mg tablet 15 mg PO DAILY #30 tabs 04/24/22 metformin 1,000 mg tablet 1,000 mg PO DAILY #90 tabs 04/24/22 omeprazole 40 mg capsule,delayed 40 mg PO HS #90 caps 04/24/22 release venlafaxine 150 mg 150 mg PO DAILY #90 caps 05/08/22 capsule,extended release 24 hr fluticasone propionate 110 1 puff inhalation BID PRN 05/26/22 mcg/actuation HFA aerosol inhaler shortness of breath #12 grams hydroxyzine HCl 50 mg tablet 50 mg PO TID PRN anxiety #30 tabs 05/26/22 venlafaxine 150 mg tablet,extended 150 mg PO DAILY #30 tabs 05/26/22 release 24 hr Allergies Allergy/AdvReac Type Severity Reaction Status Date / Time No Known Drug Allergies Allergy Verified 04/24/22 08:42 Review of Systems <Houston Ackerman PA-C - Last Filed: 05/26/22 15:14> Review of Systems Narrative: GENERAL: Denies chills, fatigue, malaise, fever, sweats. HEENT: Denies sinus pain, ear pain, sore throat, difficulty swallowing, dizziness. RESPIRATORY: Denies dyspnea, cough, wheezing, hemoptysis, sputum. CARDIOVASCULAR: Denies chest pain, palpitations, orthopnea, edema, GASTROINTESTINAL: Denies nausea, vomiting, abdominal pain, diarrhea, constip ation, melena. : Denies dysuria, frequency, incontinence, hematuria, urinary retention. MUSCULOSKELETAL: denies weakness, joint pain, or bony pain SKIN: Denies rash, skin lesions, or other NEUROLOGIC: Denies weakness, headache, numbness, change in speech, confusion, seizures, incoordination. PSYCHIATRIC: Anxiety 12 point review of systems is negative except for those stated above Patient History <Houston Ackerman PA-C - Last Filed: 05/26/22 15:14> Medical History (Updated 05/26/22 @ 15:07 by Houston Ackerman PA-C) Anxiety Chronic back pain Chronic cough Diabetes mellitus Disorder of lumbar spine Emphysema (subcutaneous) (surgical) resulting from a procedure Emphysema of lung History of posttraumatic stress disorder (PTSD) Hypertension Obesity (BMI 30-39.9) Rib fractures Shoulder pain Sleep apnea Surgical History H/O shoulder surgery Family History Brother Aneurysm Stroke Father Heart disease Sister Heart disease Diabetes mellitus Mother Diabetes mellitus Social History Smoking Status: Current every day smoker alcohol intake: never substance use type: marijuana Smoking Status: Current every day smoker alcohol intake frequency: 0-2 drinks per day Substance Use Type: does not use Exam <RABIA Newberry Last Filed: 05/26/22 15:14> Narrative Exam Narrative: GENERAL: Well-developed patient, in mild distress. HEAD: Atraumatic. Normocephalic. EYES: Pupils equal round and reactive. Extraocular motions intact. No scleral icterus. No injection or drainage. ENT: Nose without bleeding, purulent drainage. Throat without erythema, tonsillar hypertrophy or exudate. Airway patent. NECK: Trachea midline. Non tender EXTREMITIES: No edema or joint tenderness. BACK: Nontender without deformity or crepitance. No flank tenderness. NEURO: AOx3. SKIN: No rash or erythema of visible areas Psych: Tearful. Appropriate during the exam, no flight of ideas. Answering questions appropriately Initial Vital Signs Initial Vital Signs: Vital Signs Temperature 97.9 F 05/26/22 12:48 Pulse Rate 80 05/26/22 12:48 Respiratory Rate 22 05/26/22 12:48 Blood Pressure 138/88 05/26/22 12:48 Pulse Oximetry 99 05/26/22 12:48 Oxygen Delivery Method 05/26/22 12:48 <Lance Hobbs DO - Last Filed: 05/27/22 06:38> Initial Vital Signs Initial Vital Signs: Vital Signs Temperature 97.9 F 05/26/22 12:48 Pulse Rate 80 05/26/22 12:48 Respiratory Rate 22 05/26/22 12:48 Blood Pressure 138/88 05/26/22 12:48 Pulse Oximetry 99 05/26/22 12:48 Oxygen Delivery Method 05/26/22 12:48 Course <RABIA Newberry Last Filed: 05/26/22 15:14> Vital Signs Vital signs: Vital Signs - 8 hr 05/26/22 12:48 Temperature 97.9 F Pulse Rate 80 Respiratory Rate 22 Blood Pressure 138/88 Pulse Oximetry 99 Oxygen Delivery Method Room Air <Lance Hobbs DO - Last Filed: 05/27/22 06:38> Vital Signs Vital signs: Vital Signs - 8 hr 05/26/22 12:48 Temperature 97.9 F Pulse Rate 80 Respiratory Rate 22 Blood Pressure 138/88 Pulse Oximetry 99 Oxygen Delivery Method Room Air MDM - Psych <RABIA Newberry Last Filed: 05/26/22 15:14> [facility] Narrative Medical decision making narrative: This is a 56-year-old male presents to the emergency department due to worsening anxiety over the last couple of days. He repeatedly denies suicidal or homicidal ideation. No symptoms concerning for schizophrenia or bipolar disorder. Patient states that his anxiety medication was recently decreased on his request by his primary care provider. Will attempt to increase his venlafaxine to his previous dose of 100 mg daily in the hopes that this will help control his anxiety. We will also prescribe hydroxyzine, patient requested hydroxyzine rather than Ativan, to be used if the increasing dosage of venlafaxine does not help with his symptoms. Recommend he call his primary care provider on Saturday for further evaluation and long-term management of his antianxiety/depression medications. CC: Worsening anxiety Complicating co-morbidities: History of anxiety and depression Data collected from: Previous notes Medical records reviewed: Patient was recently seen by his primary care provider where a prescription for venlafaxine 75 mg was prescribed which was decreased from previously prescribed 100 mg Differential considered, but not limited to: Anxiety, depression, suicidal ideation, homicidal ideation, bipolar, schizophrenia Exam documented above, pertinent findings include: Tearful but appropriate to questions Lab Test results independently reviewed as above. Pertinent findings: Not applicable Independently reviewed EKG as above not obtained Imaging studies independently reviewed: Not obtained Scores Used: None MIPS Elements: None Consultations: None Treatments: None Re-evaluations: None Discussion: Discussed plan with the patient who is comfortable discharging home Diagnosis: Worsening anxiety Disposition: see below, along with detailed discharge instructions that have been reviewed with patient as well as indications for ED re-evaluation and additional outpatient follow up Discharge Plan Departure Patient Disposition: Home Clinical Impression: Panic attack, Generalized anxiety disorder Activity Restrictions/Additional Instructions: Thank you for coming to the [facility] Emergency Department today. It seems you are understandably having increased anxiety over the last couple of days. We will prescribe the dosing of venlafaxine that you were taking before the tapered by your primary care provider. Please begin taking this today, if this does not help with your symptoms you may take the hydroxyzine as prescribed. Please follow-up with your primary care provider on Saturday for further evaluation and long-term management of your medications. I am glad you are not having any thoughts of hurting herself or anyone else but if you do please return immediately to the emergency department. I have also refilled your inhaler prescription. I hope you feel better soon. Prescriptions: New venlafaxine 150 mg tablet extended release 24hr 150 mg PO DAILY Qty: 30 0RF hydroxyzine HCl 50 mg tablet 50 mg PO TID PRN (Reason: anxiety) Qty: 30 0RF fluticasone propionate 110 mcg/actuation HFA aerosol inhaler 1 puff inhalation BID PRN (Reason: shortness of breath) Qty: 12 2RF No Action atorvastatin 40 mg tablet 40 mg PO QHS Qty: 90 3RF lisinopril 20 mg tablet See Rx Instructions .ROUTE .COMPLEX Qty: 90 3RF Dose Instruction: TAKE ONE TABLET BY MOUTH ONE TIME DAILY Rx Instructions: TAKE ONE TABLET BY MOUTH ONE TIME DAILY metformin 1,000 mg tablet 1,000 mg PO DAILY Qty: 90 3RF omeprazole 40 mg capsule,delayed release(DR/EC) 40 mg PO HS Qty: 90 2RF meloxicam 15 mg tablet 15 mg PO DAILY Qty: 30 0RF albuterol sulfate 90 mcg/actuation HFA aerosol inhaler 1 inh INHALATION Q4-6H PRN (Reason: shortness of breath) Qty: 18 0RF fluticasone propionate [Flovent HFA] 110 mcg/actuation HFA aerosol inhaler 1 puff INHALATION BID Qty: 12 2RF (DME) CPAP Qty: 1 Dose Instruction: As directed Label Comments: Pressure: 12-18 cmH2O DME: Rx Instructions: As directed (DME) disabled parking permit See Rx Instructions .ROUTE .MEDSUPPLY Qty: 1 0RF Rx Instructions: My patient cannot walk 200 feet without stopping to rest or must use assistive device. Walking is severely limited due to arthritic, neurological or orthopedic condition. Uses portable oxygen or walking restricted by lung disease venlafaxine 150 mg capsule,extended release 24hr 150 mg PO DAILY Qty: 90 1RF Referrals: Carolyn Calvin DO [Primary Care Provider] - Stand Alone Forms: Patient Portal/API <Lance Hobbs DO - Last Filed: 05/27/22 06:38> [facility] ED Attending Jemma Attestation: I was immediately available in the department for consultation. This documentation has been reviewed and I agree with assessment and plan. Supervised by Lance Hobbs DO
== END 2022-05-26 15:14 | disposition home or self-care (01) ==
PROVIDERS: Emergency Provider Physician Assistant Medical; Family Provider Family Medicine; PCP Family Medicine
DX: F41.0 Panic disorder [episodic paroxysmal anxiety] (principal); F41.1 Generalized anxiety disorder
CPT/HCPCS: 99282; 99283

== ENCOUNTER → 2022-06-05 11:39 | Outpatient (CLI) | payer MEDICARE, MEDICAID, SELFPAY ==
--- NOTE | 2022-06-05 11:41 | DI.RAD.S_ITS ---
PROCEDURE: XR CERVICAL SPINE 2V OR 3V INDICATIONS: chronic neck pain, known DJD TECHNIQUE: 3 view(s) of the cervical spine were acquired. COMPARISON: [facility], , XR CERVICAL SPINE 2V OR 3V, 10/25/2017, 8:47. FINDINGS: Bones: No fractures or dislocations to the T1 level. The lateral masses of C1 appear intact on the odontoid view. No suspicious bony lesions. Severe C5-C6 and C6-C7 degenerative disc disease. Mild C4-C5 and C7-T1 degenerative disc disease. Mild facet hypertrophy throughout the cervical spine. Soft tissues: No prevertebral soft tissue swelling. IMPRESSION: 1. Multilevel degenerative disc disease. 2. Multilevel facet arthropathy. 3. No fracture. No acute osseous lesion. If symptoms and/or clinical suspicion for pathology persists, evaluation with MRI should be considered for further assessment. Dictated by: Shira Duenas MD, PhD on 06/05/2022 at 13:16 Approved by: Shira Duenas MD, PhD on 06/05/2022 at 13:17
[2022-06-05 12:30] LABS: Add Manual Diff / Slide Review NO; Basophils Absolute Auto 0 /uL (0-100); Basophils Percent Auto 0.3 % (0-2); Eosinophils Absolute Auto 300 /uL (0-450); Eosinophils Percent Auto 2.2 % (2-4); Hematocrit 45.7 % (41-53); Hemoglobin 15.4 g/dL (13.5-17.5); Lymphocytes Absolute Auto 3200 /uL (1100-4500); Lymphocytes Percent Auto 26.4 % (25-40); Mean Corpuscular HGB Conc 33.7 % (30-36); Mean Corpuscular Hemoglobin 28.7 PG (26-34); Monocytes Absolute Auto 700 /uL (0-900); Monocytes Percent Auto 5.7 % (3-14); Neutrophils Absolute Auto 7900 /uL (1500-7000); Neutrophils Percent Auto 65.4 % (50-75); Platelet Count 299 X10^3/uL (150-400); Red Blood Cell Count 5.38 X10^6/uL (4.5-5.9); White Blood Cell Count 12.1 X10^3/uL (4.5-11.0)
[2022-06-05 12:40] LABS: Hemoglobin A1C% w Est Avg Glu 7.8 % (4.0-6.0)
[2022-06-05 12:43] LABS: Alanine Aminotransferase 29 IU/L (<50); Albumin 4.6 g/dL (3.5-5.0); Albumin Globulin Ratio 1.2 (1.0-2.8); Alkaline Phosphatase 81 U/L (38-126); Aspartate Aminotransferase 25 IU/L (17-59); BUN Creatinine Ratio 18.5 (6-22); Blood Urea Nitrogen 12 mg/dL (9-20); Calcium 9.3 mg/dL (8.4-10.2); Carbon Dioxide 28 mmol/L (22-32); Chloride 102 mmol/L (98-107); Cholesterol 192 mg/dL (140-199); Estimated Glomerular Filt Rate > 60 mL/min (>60); Globulin 3.9 g/dL (1.7-4.1); Glucose 155 mg/dL (70-100); HDL Cholesterol 30 mg/dL (40-60); HEMOLYSIS < 15 (0-50); LDL Cholesterol Calculated 124 mg/dL (<100); Potassium 4.4 mmol/L (3.4-5.1); Sodium 141 mmol/L (137-145); Total Protein 8.5 g/dL (6.3-8.2); Triglycerides 188 mg/dL (35-150)
[2022-06-05 12:51] LABS: Creatinine Urine Random 210.5 mg/dL
[2022-06-05 12:57] LABS: Microalbumi Creatinin Ratio Ur 4.7 ug/mg CR (<30)
[2022-06-05 13:12] LABS: TSH w/ Reflex to FT4 1.91 uIU/mL (0.47-4.68)
== END ==
PROVIDERS: Family Provider Family Medicine; PCP Family Medicine; Referring Provider Family Medicine; Visit Provider Family Medicine
DX: M47.812 Spondylosis without myelopathy or radiculopathy, cervical region (principal); M50.321 Other cervical disc degeneration at C4-C5 level; E11.9 Type 2 diabetes mellitus without complications
CPT/HCPCS: 36415; 72040; 80053; 80061; 82043; 82570; 83036; 84443; 85025

== ENCOUNTER → 2022-10-02 11:44 | Outpatient (CLI) | payer MEDICARE, MEDICAID, SELFPAY ==
[2022-10-02 13:25] LABS: Appearance Urine UA CLEAR; Bilirubin Urine UA NEGATIVE (NEGATIVE); Color Urine UA YELLOW; Glucose Urine UA NEGATIVE (Negative); Ketones Urine UA NEGATIVE (NEGATIVE); Leukocyte Esterase Urine UA NEGATIVE (NEGATIVE); Nitrite Urine UA NEGATIVE (Negative); Occult Blood Urine UA NEGATIVE (Negative); Protein Urine UA NEGATIVE (Negative); Specific Gravity Urine UA >=1.030 (1.000-1.035); Urobilinogen Urine UA 0.2 E.U./dL (0.2)
[2022-10-02 13:46] LABS: Bacteria Urine None Seen; Culture Indicated Urine Cult Not Indicated; RBC Urine None Seen (0-5/HPF); Squamous Epithelial Cell Urine None Seen (0-5/HPF); WBC Urine None Seen (0-5/HPF)
[2022-10-02 13:59] LABS: Prostate Specific Antigen Scrn 0.991 ng/mL (0.1-4.0)
== END ==
PROVIDERS: Family Provider Family Medicine; PCP Family Medicine; Referring Provider Family Medicine; Visit Provider Family Medicine
DX: Z12.5 Encounter for screening for malignant neoplasm of prostate (principal); R39.15 Urgency of urination
CPT/HCPCS: 36415; 81001; G0103

== ENCOUNTER → 2023-08-28 13:25 | Outpatient (CLI) | payer MEDICARE, MEDICAID, SELFPAY ==
[2023-08-28 14:31] LABS: Hemoglobin A1C% w Est Avg Glu 11.6 % (4.0-6.0)
== END ==
PROVIDERS: Family Provider Family Medicine; PCP Family Medicine; Referring Provider Family Medicine; Visit Provider Family Medicine
DX: E11.9 Type 2 diabetes mellitus without complications (principal)
CPT/HCPCS: 36415; 83036

== ENCOUNTER → 2024-07-21 12:18 | Outpatient (CLI) | payer MEDICARE, MEDICAID, SELFPAY ==
[2024-07-21 13:16] LABS: Influenza A - CEPHEID Flu A NEGATIVE (NEGATIVE); Influenza B - CEPHEID Flu B NEGATIVE (NEGATIVE); Respiratory Syncytial Virus Negative (Negative)
[2024-07-21 13:17] LABS: COVID-19 CEPHEID 4-PLEX PCR Negative (Negative)
== END ==
PROVIDERS: Family Provider Family Medicine; Visit Provider Student in an Organized Health Care Education/Training Program
DX: R05.9 Cough, unspecified (principal)
CPT/HCPCS: 0241U